=== PATIENT | male | born 1990 | race Caucasian/White ===

== ENCOUNTER 2019-04-04 09:26 | Inpatient (IN) | payer MEDICAID ==
[~2019-04-04] VITALS: Ht 170.2 cm; Wt 72.6 kg
[2019-04-04 09:26] VITALS: BP_SYST 189
--- NOTE | 2019-04-04 09:30 | NUR ---
Placed in room 8. Placed on registered nurse cardiac telemetry, blood pressure machine and pulse oximeter. To gown for exam. Side rails up.
--- NOTE | 2019-04-04 09:30 | NUR ---
Patient sitting up on bed. AAOx4. Respirations even and unlabored. No SOB. Denies of any chest pain, headache, dizziness, numbness, tingling, or fevers. Patient with c/o nausea, vomiting, and weakness since Tuesday, after eating out at a [place] restaurant. Patient denies of any abdominal pain or diarrhea. Patient also states that his blood sugar machine read "HIGH" prior to arrival. Patient in no acute distress. MD aware of patient condition. New orders noted and to be carried out.
--- NOTE | 2019-04-04 09:40 | NUR ---
ER Dr. Gracia at bedside examining patient.
[2019-04-04] MEDS ORDERED: ONDANSETRON HCL 4 MG/2 ML VIAL IVP ONE (10:00)
[2019-04-04] MEDS ORDERED: NACL 0.9% 1,000 ML IV ONE (10:00)
[2019-04-04] MEDS ORDERED: INSULIN REGULAR, HUMAN 10 UNITS/0.1 ML INJ IVP ONE (10:00)
[2019-04-04 10:02] LABS: BASOPHILS % (AUTO) 0.4 % (0.0-2.0); EOSINOPHILS % (AUTO) 0.1 % (0.0-4.0); HEMATOCRIT 54.3 % (36-54); HEMOGLOBIN 18.8 g/dL (14.0-18.0); LYMPHOCYTES # (AUTO) 1.1 K/uL (1.0-5.5); LYMPHOCYTES % (AUTO) 8.2 % (20.5-51.5); MEAN CORPUSCULAR HEMOGLOBIN 33 pg (27-31); MEAN CORPUSCULAR HGB CONC 35 % (32-36); MEAN CORPUSCULAR VOLUME 95 fL (79.0-98.0); MONOCYTES # (AUTO) 0.5 K/uL (0.0-1.0); MONOCYTES % (AUTO) 3.9 % (1.7-9.3); NEUTROPHILS # (AUTO) 11.4 K/uL (1.8-7.7); NEUTROPHILS % (AUTO) 87.4 % (40.0-70.0); PLATELET COUNT (AUTO) 396 K/uL (130-430); RED BLOOD CELL COUNT(AUTO) 5.75 MIL/uL (4.2-6.2); RED CELL DISTRIBUTION WIDTH 12.5 % (9.0-15.0)
--- NOTE | 2019-04-04 10:10 | NUR ---
Zofran administered for nausea. Tolerated well. Please see EMAR for details. IV fluids of NS 1,000ml started per MD orders. Tolerating well. Please see EMAR for details.
[2019-04-04 10:19] LABS: ANION GAP 22 (5-15); CALCIUM 9.4 mg/dL (8.4-11.0); CHLORIDE 89 mmol/L (98-107); CREATININE 1.48 mg/dL (0.55-1.30); POTASSIUM 3.9 mmol/L (3.5-5.1); SODIUM SERUM 129 mmol/L (136-145); UREA NITROGEN, BLOOD 24 mg/dL (8-21)
[2019-04-04 10:24] LABS: GFR AFRICAN AMERICAN 71 mL/min (>90)
[2019-04-04 10:25] LABS: ALANINE AMINOTRANSFERASE 29 U/L (12-78); ALBUMIN 4.4 g/dL (3.4-4.8); AMYLASE 56 U/L (0-100); ASPARTATE AMINOTRANSFERASE 20 U/L (10-37); LIPASE 67 U/L (73-393); TOTAL BILIRUBIN 2.9 mg/dL (0.0-1.0)
[2019-04-04 10:26] LABS: GLUCOSE 456 mg/dL (70-99)
[2019-04-04 10:31] LABS: ACETONE, SERUM POSITIVE (NEGATIVE)
--- NOTE | 2019-04-04 10:40 | NUR ---
Regular insulin IV push administered per Dr. Basil betts. Please see EMAR for details. Addendum: 04/04/19 at 1049 by [email or web address] Patient resting quietly. Patient verbalized relief from nausea. No acute distress noted.
[2019-04-04] MEDS ORDERED: INSU100I26 SQ (10:52)
[2019-04-04] MEDS ORDERED: INSU100V7 IJ (10:52)
--- NOTE | 2019-04-04 11:00 | NUR ---
Patient resting quietly. No acute distress noted. Vital signs stable.
--- NOTE | 2019-04-04 11:05 | NUR ---
Patient still unable to provide a urine sample. Dr. Gracia made aware. No new orders given at this time.
[2019-04-04] MEDS ORDERED: KCL 20 mEq in 0.45% NS 1000 mL 1,000 ML IV SCH ×2 (11:30→20:00)
--- NOTE | 2019-04-04 11:50 | NUR ---
Patient will be admitted to care of DR. PANDEY. Admitted to TELEMETRY unit. Will go to room 123B. Belongings list completed. Summary report printed. Report will be given at bedside. PATIENT IN GOOD CONDITION AND IN NO ACUTE DISTRESS. VSS.
--- NOTE | 2019-04-04 11:50 | NUR ---
Transfer to TELEMTRY 123B via ACLS protocol. Licensed nurse present. IV present no signs or symptoms of infiltration.
--- NOTE | 2019-04-04 12:05 | NUR ---
ADMISSION NOTE Received patient from ER via gurney. Patient admitted with diagnosis of NAUSEA,VOMITING, DEHYDRATION,DIABETES. Patient is awake, alert, oriented X 4. Patient oriented to hospital room, call light, toileting, pain management and safety-teach back done. Personal belongings checked and Belongings List documented. Call light within reach.
[2019-04-04 13:16] VITALS: BP_SYST 129
[2019-04-04] MEDS: KCL 20 mEq in 0.45% NS 1000 mL 1,000 ML IV SCH ×2 (13:30→21:27)
--- NOTE | 2019-04-04 14:19 | NUR ---
Rounds Patient resting in bed at this time, A/Ox4, no complaints of pain. No SOB. No nausea, no vomiting. Iv patent, intact, and infusing fluids as ordered. tolerating well. No infiltration noted.
[2019-04-04 15:16] VITALS: BP_SYST 124
--- NOTE | 2019-04-04 15:31 | NUR ---
Rounds Offered to assist patient to the restroom, patient declined need. fresh water provided. no other needs at this time.
[2019-04-04] MEDS: metroNIDAZOLE 500 mg/NS 100 ML IV SCH ×2 (15:50→22:11)
--- NOTE | 2019-04-04 16:33 | NUR ---
Bingo Attendant: Received ref. for pt. who is homeless. CAN SLIDER verified that pt. is homeless by looking at Assessment which states pt. stays in a hotel. CAN SLIDER met with pt. who confirmed his address in facesheet at [facility] [place] [facility] [address]. Pt. confirmed this was up in [facility]. 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 He denied being homeless. CAN SLIDER asked if pt. needed any resources. Pt. looked bothered and stated he did not. CAN SLIDER told him if he had any questions or concerns, he can have his Rn. Gerardo call a manager social media to come see him. Pt. thanked CAN SLIDER. CAN SLIDER will remain available as needed.
[2019-04-04] MEDS: ONDANSETRON HCL 4 MG/2 ML VIAL IVP PRN (16:55)
--- NOTE | 2019-04-04 17:30 | NUR ---
Sepsis protocol and Accu check No sliding scale coverage orders, paged MD. Asked MD about sepsis protocol, MD stated patient is stable. No new orders. New order for sliding scale coverage noted and carried out.
[2019-04-04] MEDS: INSULIN REGULAR, HUMAN 100 UNITS/ML, 10 ML VIAL (humuLIN R) SUBCUT PRN ×2 (17:31→21:39)
--- NOTE | 2019-04-04 18:15 | NUR ---
Closing note Patient resting in bed at this time, A/Ox4, no complaints of pain. No SOB. No nausea, no vomiting. Iv patent, intact, and infusing fluids as ordered. tolerating well. No infiltration noted. No complaints of abdominal pain. On safety and aspiration precautions, HOB kept elevated, 3 side rails up, call light within reach. Patient in stable condition. All needs met.
--- NOTE | 2019-04-04 19:35 | NUR ---
ROUNDS PATIENT RESTING COMFORTABLY IN BED, NOT IN DISTRESS, VITALS STABLE. DEIES ANY PAIN AND DISCOMFORT AT THIS TIME. ASSESSMENT DONE AND DOCUMENTED. SEE FLOWSHEET. NEEDS ATTENDED TO. SAFETY AND FALL PRECAUTION MEASURES IN PLACED. BED IN LOW AND LOCKED POSITION. CALL LIGHT PLACED WITHIN REACH.
[2019-04-04 20:00] VITALS: BP_SYST 134
--- NOTE | 2019-04-04 21:16 | NUR ---
MEDICATION DUE MEDICATIONS GIVEN SCHEDULED, TOLERATED WELL. WILL CONTINUE TO MONITOR.
[2019-04-04] MEDS: PANTOPRAZOLE SODIUM 40 MG TAB PO SCH (21:27)
[2019-04-04] MEDS: INSULIN GLARGINE 100 UNITS/ML 10 ML VIAL SQ SCH (21:32)
--- NOTE | 2019-04-04 23:05 | NUR ---
DR. LU PAGED AND TALKED TO DR. LU, PATIENT WANTS SLEEPING PILL. NEW ORDER GIVEN. WILL CONTINUE TO MONITOR.
[2019-04-05] VITALS (7 sets, daily range): BP systolic 121–135
[2019-04-05] MEDS: TEMAZEPAM 15 MG CAPSULE PO PRN (00:01)
--- NOTE | 2019-04-05 01:45 | NUR ---
ROUNDS PATIENT ASLEEP, RESPIRATIONS EVEN AND UNLABORED, WILL CONTINUE TO MONITOR.
--- NOTE | 2019-04-05 02:42 | NUR ---
PER JORGE COLLADO CN , CELIA REQUESTED TO CHANGE THE HOMELESS ASSESSMENT , BUT SINCE SHE FORGOT TO DOCUMENT BEFORE LEAVING , Jus PATEL REQUESTED TO CHANGE THE DOCUMENTATION.CHANGED PER REQUEST
--- NOTE | 2019-04-05 04:02 | NUR ---
PATIENT RESTING: Patient resting quietly. No acute distress noted. Vital signs within normal range.
[2019-04-05] MEDS: metroNIDAZOLE 500 mg/NS 100 ML IV SCH ×3 (05:59→22:23)
[2019-04-05] MEDS: KCL 20 mEq in 0.45% NS 1000 mL 1,000 ML IV SCH ×3 (06:00→14:29)
[2019-04-05] MEDS: ONDANSETRON HCL 4 MG/2 ML VIAL IVP PRN ×3 (06:07→14:26)
--- NOTE | 2019-04-05 06:33 | NUR ---
CLOSING NOTES PATIENT AWAKE, VITALS STABLE, C/O OF NAUSEA AT THIS TIME. ZOFRAN 4 MG IV GIVEN ORDERED PRN FOR NAUSEA. NPO FOR ORDERED ULTRASOUND OF THE ABDOMEN. NEEDS ATTENDED TO. CALL LIGHT PLACED WITHIN REACH.
[2019-04-05 06:42] LABS: BASOPHILS % (AUTO) 0.5 % (0.0-2.0); EOSINOPHILS % (AUTO) 0.3 % (0.0-4.0); HEMATOCRIT 45.6 % (36-54); HEMOGLOBIN 15.8 g/dL (14.0-18.0); LYMPHOCYTES % (AUTO) 22.9 % (20.5-51.5); MEAN CORPUSCULAR HEMOGLOBIN 33 pg (27-31); MEAN CORPUSCULAR HGB CONC 35 % (32-36); MEAN CORPUSCULAR VOLUME 94 fL (79.0-98.0); MONOCYTES # (AUTO) 0.6 K/uL (0.0-1.0); MONOCYTES % (AUTO) 6.6 % (1.7-9.3); NEUTROPHILS % (AUTO) 69.7 % (40.0-70.0); PLATELET COUNT (AUTO) 315 K/uL (130-430); RED BLOOD CELL COUNT(AUTO) 4.84 MIL/uL (4.2-6.2); RED CELL DISTRIBUTION WIDTH 12.7 % (9.0-15.0); WHITE BLOOD COUNT (AUTO) 8.5 K/uL (4.8-10.8)
[2019-04-05 06:50] LABS: ANION GAP 21 (5-15); CALCIUM 8.1 mg/dL (8.4-11.0); CHLORIDE 96 mmol/L (98-107); CREATININE 1.21 mg/dL (0.55-1.30); GLUCOSE 298 mg/dL (70-99); SODIUM SERUM 130 mmol/L (136-145); UREA NITROGEN, BLOOD 15 mg/dL (8-21)
[2019-04-05 06:55] LABS: GFR AFRICAN AMERICAN 90 mL/min (>90)
[2019-04-05] MEDS: INSULIN REGULAR, HUMAN 100 UNITS/ML, 10 ML VIAL (humuLIN R) SUBCUT PRN ×4 (06:55→22:33)
[2019-04-05] MEDS ORDERED: D5W 1,000 ML IV PRN (07:00)
[2019-04-05] MEDS ORDERED: GLUCOSE 15 GM GEL (in 37.5 GM TUBE) PO PRN (07:00)
[2019-04-05] MEDS ORDERED: DEXTROSE 50%-WATER 50 ML DISP.SYRIN IVP PRN (07:00)
[2019-04-05 07:05] LABS: ACETONE, SERUM MODERATE (NEGATIVE)
--- NOTE | 2019-04-05 07:30 | NUR ---
Opening note Patient resting in bed at this time, A/Ox4, no complaints of pain. No SOB. No vomiting. Iv patent, intact, and infusing fluids as ordered. tolerating well. No infiltration noted. No complaints of abdominal pain. On safety and aspiration precautions, HOB kept elevated, 3 side rails up, call light within reach. Patient in stable condition. Will continue to monitor.
--- NOTE | 2019-04-05 08:00 | NUR ---
nausea/ vomiting. Patient complained of nausea, and vomiting x1, green emesis 375ml measured. Paged MD awaiting call back.
--- NOTE | 2019-04-05 08:48 | NUR ---
Dr. Steven RANKIN called back, new order for Zofran to be given every 4 hours as needed, patient to be placed on clear liquid diet. Patient to be seen by Dr. Matias.
--- NOTE | 2019-04-05 08:56 | NUR ---
GI consult called: for Dr. Matias (Dr. Mahad Forman delivery and installation subcontractor), regarding N/V, ordered by Dr. Harris, spoke with Noa.
[2019-04-05] MEDS: PANTOPRAZOLE SODIUM 40 MG TAB PO SCH ×2 (08:59→21:00)
--- NOTE | 2019-04-05 09:10 | NUR ---
medications All morning medications with Zofran given. tolerating well at this time. No vomiting noted. Ice chips provided. patient in stable condition.
--- NOTE | 2019-04-05 11:15 | NUR ---
Rounds Patient resting in bed at this time, no complaints of pain. No nausea, no vomiting a this time. Ice chips provided. No other needs at this time.
--- NOTE | 2019-04-05 13:14 | NUR ---
Dietitian Recommendations * Recommend standard [facility] carbohydrate diet with Glucerna BID (additional 440 kcal and 20 gm of protein). * Encourage PO intake. Please see Nutritional Assessment for details. NICOL, RD
--- NOTE | 2019-04-05 13:30 | NUR ---
Lunch Patient eating lunch at this time, tolerated well. No nausea, no vomiting at this time. No complaints of pain.
--- NOTE | 2019-04-05 15:30 | NUR ---
Rounds Patient resting in bed at this time, no complaints of pain. IV patent, intact, and infusing fluids as ordered. no adverse side effects noted.
--- NOTE | 2019-04-05 16:00 | NUR ---
HIDA scan at midnight Patient to have HIDA scan at midnight. Spoke Hyacinth from [facility], stated patient may have dinner and only needs to be NPO 6 hours prior to the test. Patient made aware about NPO status. patient verbalized understanding.
[2019-04-05] MEDS ORDERED: METOCLOPRAMIDE HCL 10 MG/2 ML VIAL IVP PRN (17:00)
--- NOTE | 2019-04-05 18:14 | NUR ---
Closing note/ NPO Patient resting in bed at this time, A/Ox4, no complaints of pain. No SOB. No vomiting. Iv patent, intact, and infusing fluids as ordered. tolerating well. No infiltration noted. No complaints of abdominal pain. On safety and aspiration precautions, HOB kept elevated, 3 side rails up, call light within reach. patient NPO at this time until HIDA scan at midnight. Patient in stable condition. All needs met.
--- NOTE | 2019-04-05 19:30 | NUR ---
initial notes: pt is awake, alert, oriented x 4. on bed watching tv. no pain. stable. not distress. ivf running to right ac gauge 18- intact and patent. no sign of infiltration. discuss to pt plan of care, encourage to use call for assistance, call light is with the pt. pt needs attended. safety on.side rails up. low bed position. will follow-up.
--- NOTE | 2019-04-05 20:00 | NUR ---
npo for hida scan at midnight
--- NOTE | 2019-04-05 22:00 | NUR ---
awake, alert, watching tv. no pain. stable. needs attended. will continue to monitor.
[2019-04-05] MEDS: INSULIN GLARGINE 100 UNITS/ML 10 ML VIAL SQ SCH (22:32)
--- NOTE | 2019-04-06 00:11 | NUR ---
awake, alert. no pain. stable, out of unit for hida scan.
[2019-04-06 01:25] VITALS: BP_SYST 130
--- NOTE | 2019-04-06 01:45 | NUR ---
pt is back from hida scan, no pain, not distress, stable, needs attended. call light in reach. will follow-up.
[2019-04-06] MEDS: KCL 20 mEq in 0.45% NS 1000 mL 1,000 ML IV SCH ×3 (01:55→11:02)
[2019-04-06] MEDS: TEMAZEPAM 15 MG CAPSULE PO PRN (01:56)
--- NOTE | 2019-04-06 03:52 | NUR ---
sleeping, no acute distress, no sob. no pain, stable. call light in reach. will follow-up.
--- NOTE | 2019-04-06 06:00 | NUR ---
sleeping, comfortable, no distress, no pain. stable. ivf infusing well. call light in reach. will monitor.
[2019-04-06] MEDS: metroNIDAZOLE 500 mg/NS 100 ML IV SCH ×2 (06:19→14:36)
[2019-04-06] MEDS: INSULIN REGULAR, HUMAN 100 UNITS/ML, 10 ML VIAL (humuLIN R) SUBCUT PRN (06:24)
--- NOTE | 2019-04-06 07:25 | NUR ---
closing: pt is sleeping, no sign of pain, no labored breathing. stable. ivf infusing well. needs attended the whole shift. bedside report given to am rn.
[2019-04-06 08:00] VITALS: BP_SYST 112
[2019-04-06] MEDS ORDERED: FLU VACC QS2019-20 36MOS UP/PF 60 MCG/0.5 ML SYRINGE I.M. PRN (09:00)
[2019-04-06] MEDS: PANTOPRAZOLE SODIUM 40 MG TAB PO SCH (09:05)
[2019-04-06 12:00] VITALS: BP_SYST 120
--- NOTE | 2019-04-06 15:00 | NUR ---
PATIENT UP AND AMBULATING IN HALLS. NO C/O PAIN. NO NAUSEA OR VOMITING NOTED. TOLERATING FLUIDS WELL.AWAITING
[2019-04-06 16:12] VITALS: BP_SYST 126
--- NOTE | 2019-04-06 19:42 | NUR ---
Discharge Patient dc home with no antibiotics. IV removed with no bleeding at the site. Catheter tip intact. ID band removed. All belonging home with patient and signed. No nausea/vomiting, pain or sob. Patient is afebrile. Patient has no further questions.
== END 2019-04-06 19:45 | disposition home or self-care (01) | DRG 249 ==
LOC: SED 09:26 → STU 11:16
PROVIDERS: ADMIT Family Medicine; ATTEND Family Medicine
DX: K52.9 Noninfective gastroenteritis and colitis, unspecified (principal); R65.11 Systemic inflammatory response syndrome (SIRS) of non-infectious origin with acute organ dysfunction; E10.10 Type 1 diabetes mellitus with ketoacidosis without coma; N17.9 Acute kidney failure, unspecified; E87.8 Other disorders of electrolyte and fluid balance, not elsewhere classified; E87.1 Hypo-osmolality and hyponatremia; E86.0 Dehydration; K82.8 Other specified diseases of gallbladder; K31.9 Disease of stomach and duodenum, unspecified; Z79.4 Long term (current) use of insulin
CPT/HCPCS: 36415; 36600; 71045; 76700-TC; 78226; 80048; 80053; 82009-TC; 82150-TC; 82803-TC; 82962; 83036; 83605; 83690-TC; 83735-TC; 85025; 93005; 96361; 96374; 96375; 99285; A9537; G0378; J1815; J2405; J2765; J3480; J3490